=== PATIENT | male | born 1960 | race Caucasian/White ===

== ENCOUNTER 2017-05-08 12:48 | Emergency (ER) | payer OTHER ==
[2017-05-08 13:01] VITALS: BP 151/92; PULSE 61; RESP 18; O2SAT 95
[2017-05-08] MEDS ORDERED: TDAP ADULT 0.5 ML INJ (BOOSTRIX) IM ONE (13:01)
--- NOTE | 2017-05-08 13:09 | EDPHY ---
H & P Stated Complaint: left index finger laceration occurred at work with wrench on 05/06 Time Seen by Provider: 05/08/17 13:02 HPI/ROS: CHIEF COMPLAINT: Laceration HISTORY OF PRESENT ILLNESS: Patient is a 57-year-old man who comes to the emergency department complaining of laceration to his left index finger that he sustained 2 days ago on a bolt. He has kept it bandaged since that time with antibiotic ointment. It has not had any drainage. It is slightly swollen. No erythema. No nail bed involvement. Normal range of motion. REVIEW OF SYSTEMS: Constitutional: denies: chills, fever, recent illness, recent injury EENTM: denies: blurred vision, double vision, nose congestion Respiratory: denies: cough, shortness of breath Cardiac: denies: chest pain, irregular heart rate, lightheadedness, palpitations Gastrointestinal/Abdominal: denies: abdominal pain, diarrhea, nausea, vomiting, blood streaked stools Genitourinary: denies: dysuria, frequency, hematuria, pain Musculoskeletal: denies: joint pain, muscle pain Skin: See HPI Neurological: denies: headache, numbness, paresthesia, tingling, dizziness, weakness Hematologic/Lymphatic: denies: blood clots, easy bleeding, easy bruising Immunologic/allergic: denies: HIV/AIDS, transplant EXAM: GENERAL: Well-appearing, well-nourished and in no acute distress. HEAD: Atraumatic, normocephalic. EYES: Pupils equal round and reactive to light, extraocular movements intact, sclera anicteric, conjunctiva are normal. ENT: TMs normal, nares patent, oropharynx clear without exudates. Moist mucous membranes. NECK: Normal range of motion, supple without lymphadenopathy or JVD. LUNGS: Breath sounds clear to auscultation bilaterally and equal. No wheezes rales or rhonchi. HEART: Regular rate and rhythm without murmurs, rubs or gallops. ABDOMEN: Soft, nontender, normoactive bowel sounds. No guarding, no rebound. No masses appreciated. BACK: No CVA tenderness, no spinal tenderness, step-offs or deformities EXTREMITIES: Normal range of motion, no pitting or edema. No clubbing or cyanosis. NEUROLOGICAL: Cranial nerves II through XII grossly intact. Normal speech, normal gait. 5/5 strength, normal movement in all extremities, normal sensation PSYCH: Normal mood, normal affect. SKIN: Laceration to distal phalanx left index finger over the lateral aspect. No finger nail involvement. No tendon involvement. No joint involvement. Source: Patient Exam Limitations: No limitations - Personal History Current Tetanus Diphtheria and Acellular Pertussis (TDAP): No - Medical/Surgical History Hx Asthma: No Hx Chronic Respiratory Disease: No Hx Diabetes: No Hx Cardiac Disease: No Hx Renal Disease: No Hx Cirrhosis: No Hx Alcoholism: No Other PMH: hernia surg, reflux - Family History Significant Family History: No pertinent family hx - Social History Smoking Status: Never smoked Alcohol Use: Sober Drug Use: None Constitutional: Initial Vital Signs Heart Rate 61 05/08/17 12:59 Respiratory Rate 18 05/08/17 12:59 Blood Pressure 151/92 H 05/08/17 12:59 O2 Sat (%) 95 05/08/17 12:59 O2 Delivery Mode Room Air Allergies/Adverse Reactions: No Known Allergies Allergy (Unverified 05/08/17 13:01) Home Medications: Medication Instructions Recorded Cephalexin [Keflex] 500 mg PO TID #21 cap 05/08/17 Omeprazole 05/08/17 Medical Decision Making ED Course/Re-evaluation: The patient's finger does not appear infected. There has been open for 2 days. Will leave it open to heal by secondary intention. We have cleaned it aggressively. I will prescribe antibiotics for him to begin taking if it becomes erythematous over the next couple of days. Differential Diagnosis: Partial list of the Differential diagnosis considered include but were not limited to; laceration and although unlikely based on the history and physical exam, I also considered tendon injury, nerve injury, foreign body, infection. I discussed these differential diagnoses and the plan with the patient as well as the usual and expected course. The patient understands that the diagnosis is provisional and that in medicine we are not always correct and that further workup is often warranted. Usual and customary warnings were given. All of the patient's questions were answered. The patient was instructed to return to the emergency department should the symptoms at all worsen or return, otherwise to followup with the physician as we discussed. - Data Points Medications Given: Discontinued Medications Diphtheria/Tetanus/Acell Pertussis (Boostrix) 0.5 ml IM .ONCE ONE Stop: 05/08/17 13:02 Last Admin: 05/08/17 13:15 Dose: 0.5 ml Departure - Departure Disposition: Home, Routine, Self-Care Clinical Impression: Laceration Condition: Fair Instructions: Laceration (ED) Additional Instructions: Start taking the antibiotics if your finger becomes infected. That is if it starts looking red or starts draining pus or becomes more painful or warm to the touch. Referrals: NONE *PRIMARY CARE P,. [Primary Care Provider] - As per Instructions Trinidad Fierro MD [[facility] [place] Primary Care Provider] - As per Instructions Prescriptions: Cephalexin [Keflex] 500 mg PO TID #21 cap
== END 2017-05-08 13:36 | disposition home or self-care (01) ==
LOC: CED 12:48
DX: S61.211A Laceration without foreign body of left index finger without damage to nail, initial encounter (principal); Z23 Encounter for immunization; W45.8XXA Other foreign body or object entering through skin, initial encounter